=== PATIENT | male | born 1940 | race Caucasian/White ===

== ENCOUNTER → 2017-05-15 | Outpatient (CLI) | payer OTHER ==
[~2017-05-15] MED LIST: B-COTAB18; CALC500C73; CHOL100010 PO; CLR10 PO; EFIN1SOL; FIBER; MELO7.5T5 PO; NXM/40 PO; OMEG10007 PO; OXYB3.9D TD; RANI1TAB77; SIMV40TA2 PO; TRIA0.1C20 TOP; VITA400C15 PO
[2017-05-15 18:08] LABS: BASO % 0.6 %; BASO ABS # 0.04 K/uL (0-0.2); EOS % 8.5 %; EOS ABS # 0.59 K/uL (0-0.5); HEMATOCRIT 44.1 % (42-52); IG# 0.02 K/uL (0.00-0.02); LYMPH % 20.5 %; LYMPH ABS # 1.42 K/uL (1.2-3.4); MEAN CELL VOLUME 91.7 fL (80-100); MEAN CORPUSCULAR HEMOGLOBIN 31.2 pg (25-34); MEAN PLATELET VOLUME 9.4 fL (7.4-10.4); MONO % 13.3 %; MONO ABS # 0.92 K/uL (0.11-0.59); NEUT % 56.8 %; NEUT ABS # 3.94 K/uL (1.4-6.5); PLATELET COUNT 201 K/uL (130-400); RED CELL DISTRIBUTION WIDTH CV 13.9 % (11.5-14.5); RED CELL DISTRIBUTION WIDTH SD 46.3 fL (36.4-46.3); WHITE BLOOD COUNT 6.93 K/uL (4.8-10.8)
[2017-05-15 18:22] LABS: ALBUMIN 3.7 gm/dl (3.4-5.0); ALT/SGPT 50 U/L (12-78); AST/SGOT 30 U/L (15-37); BLOOD UREA NITROGEN 19 mg/dl (7-18); CALCIUM 9.1 mg/dl (8.5-10.1); CARBON DIOXIDE 32 mmol/L (21-32); CREATININE 1.05 mg/dl (0.60-1.40); GLUCOSE 98 mg/dl (70-99); POTASSIUM 3.9 mmol/L (3.5-5.1); SODIUM 140 mmol/L (136-145)
[2017-05-15 18:32] LABS: ALKALINE PHOSPHATASE 53 U/L (45-117); CHOLESTEROL 128 mg/dl (0-200); LDL CHOLESTEROL CALCULATED 58 mg/dl; TOTAL PROTEIN 7.2 gm/dl (6.4-8.2)
== END | disposition home or self-care (01) ==
LOC: C.LABMFLN 16:14
PROVIDERS: ATTEND Family Medicine
DX: R60.0 Localized edema (principal); E78.5 Hyperlipidemia, unspecified; C61 Malignant neoplasm of prostate

== ENCOUNTER → 2017-12-16 | Outpatient (CLI) | payer OTHER | END | disposition home or self-care (01) | LOC: C.LABSPEC 17:07 | PROVIDERS: ATTEND Podiatrist Foot & Ankle Surgery | DX: L60.0 Ingrowing nail (principal) ==